=== PATIENT | female | born 1985 | race Caucasian/White ===

== ENCOUNTER 2017-07-13 20:02 | Emergency (ER) | payer BC, MEDICAID ==
[~2017-07-13] VITALS: Ht 160 cm; Wt 67.5 kg
[2017-07-13 20:04] VITALS: Ht 160 cm; Wt 67.5 kg
[2017-07-13] MEDS ORDERED: morphine 4 MG/ML VIAL IV STA (20:31)
[2017-07-13 20:43] LABS: URINE BLOOD (Dip) POC Trace-lysed (NEGATIVE)
[2017-07-13] MEDS ORDERED: MULTI PO (20:53)
[2017-07-13] MEDS ORDERED: SERT50TA6 PO (20:53)
[2017-07-13 21:06] VITALS: TEMP 98.1
[2017-07-13 21:18] LABS: BASOPHILS % 0.2 % (0.0-2.0); EOSINOPHILS # 0.2 10^3/ul (0.0-0.5); EOSINOPHILS % 1.8 % (0.0-7.0); HEMATOCRIT 38.1 % (37.0-47.0); LYMPHOCYTES # 3.6 10^3/ul (0.8-2.9); LYMPHOCYTES % 38.3 % (15.0-51.0); MEAN CORPUSCULAR HEMOGLOBIN 30.4 pg (29.0-33.0); MEAN CORPUSCULAR HGB CONC 34.1 g/dl (32.0-37.0); MEAN PLATELET VOLUME 9.7 fl (7.4-10.4); MONOCYTE # 0.7 10^3/ul (0.3-0.9); MONOCYTES % 7.2 % (0.0-11.0); NEUTROPHIL # 4.9 10^3/ul (1.6-7.5); NEUTROPHILS % 52.4 % (39.0-77.0); PLATELET COUNT 295 10^3/UL (140-415); RED BLOOD COUNT 4.28 10^6/ul (4.20-5.40); RED CELL DISTRIBUTION WIDTH 12.2 % (11.5-14.5); WHITE BLOOD COUNT 9.3 10^3/ul (4.8-10.8)
[2017-07-13 21:43] LABS: ANION GAP 13 (8-16); BLOOD UREA NITROGEN 15 mg/dl (7-20); CALCIUM 9.3 mg/dl (8.4-10.2); CARBON DIOXIDE 27 mmol/L (21-31); CHLORIDE 104 mmol/L (97-110); CREATININE 0.81 mg/dl (0.44-1.00); GLUCOSE 95 mg/dl (70-220); POTASSIUM 3.7 mmol/L (3.5-5.1); SODIUM 140 mmol/L (135-144)
[2017-07-13 21:44] LABS: D-DIMER < 220.00 ng/ml (<460)
--- NOTE | 2017-07-13 21:44 | RADRPT ---
PROCEDURE: XR Chest. CLINICAL INDICATION: Chest pain. TECHNIQUE: Single frontal chest x-ray. COMPARISON: None available. FINDINGS: The cardiomediastinal silhouette is unremarkable. No pneumothorax, pleural effusion or consolidation is seen. No acute osseous abnormality is noted. IMPRESSION: 1. No acute cardiopulmonary abnormality. RPTAT: HFN .Maria C Felipe MD, Date Time Electronically viewed and signed by .Maria C Felipe MD, MD on 07/13/2017 21:43 .N/
[2017-07-13 21:57] LABS: TROPONIN-I < 0.012 ng/ml (0.00-0.12)
[2017-07-13] MEDS ORDERED: HYDROCODONE/APAP (5/325) TAB PO ONE (22:00)
--- NOTE | 2017-07-13 22:26 | ERD ---
ER Documentation Chief Complaint Date/Time DATE: 07/13/17 TIME: 22:25 Chief Complaint intermittent chest pain x 3 days HPI 32-year-old female presenting with left-sided chest pain intermittently for the last 3 days. She describes it as a pressure-like pain, and non-provoked, not worse with exertion. No associated shortness of breath, nausea, vomiting, fever , or chills. No alleviating or exacerbating factors. She denies any URI symptoms or cough. ROS All systems reviewed and are negative except as per history of present illness. Medications Home Meds Reported Medications Multivitamins* (Theragran*) 1 Tab Tab, 1 TAB PO DAILY, TAB 07/13/17 Sertraline Hcl* (Sertraline Hcl*) 50 Mg Tablet, 50 MG PO DAILY, #30 TAB 07/13/17 Allergies Allergies: Coded Allergies: No Known Allergies (Verified Allergy, Unknown, 07/13/17) PMhx/Soc Medical and Surgical Hx: pt denies Surgical Hx Hx Miscellaneous Medical Probl: Yes (Depression) Hx Alcohol Use: No Hx Substance Use: No Hx Tobacco Use: No Smoking Status: Never smoker FmHx Family History: No diabetes Physical Exam Vitals Vital Signs Date Time Temp Pulse Resp B/P Pulse Ox O2 Delivery O2 Flow Rate FiO2 07/13/17 22:45 74 20 115/68 98 Room Air 07/13/17 21:06 98.1 68 18 110/62 98 Room Air 07/13/17 20:04 98.5 91 20 132/75 100 Physical Exam Const: Well-appearing, no apparent distress Head: Atraumatic Eyes: Normal Conjunctiva, PERRLA ENT: Normal External Ears, Nose and Mouth. Neck: Full range of motion..~ No meningismus. Resp: Clear to auscultation bilaterally Cardio: No chest wall tenderness to palpation. Regular rate and rhythm, no murmurs. 2+ pulses in all 4 extremities Abd: Soft, non tender, non distended. Normal bowel sounds Skin: No petechiae or rashes Back: No midline or flank tenderness Ext: No cyanosis, or edema Neur: Awake and alert Psych: Anxious mood and Affect, somewhat tearful Result Diagram: 07/13/17 2100 07/13/17 2100 Results 24 hrs Laboratory Tests Test 07/13/17 20:50 07/13/17 21:00 Bedside Urine pH (LAB) 5.5 Bedside Urine Protein (LAB) Trace Bedside Urine Glucose (UA) Negative Bedside Urine Ketones (LAB) Negative Bedside Urine Blood Trace-lysed Bedside Urine Nitrite (LAB) Negative Bedside Urine Leukocyte Esterase (L 1+ White Blood Count 9.310^3/ul Red Blood Count 4.2810^6/ul Hemoglobin 13.0g/dl Hematocrit 38.1% Mean Corpuscular Volume 89.0fl Mean Corpuscular Hemoglobin 30.4pg Mean Corpuscular Hemoglobin Concent 34.1g/dl Red Cell Distribution Width 12.2% Platelet Count 88160^3/UL Mean Platelet Volume 9.7fl Neutrophils % 52.4% Lymphocytes % 38.3% Monocytes % 7.2% Eosinophils % 1.8% Basophils % 0.2% Nucleated Red Blood Cells % 0.0/100WBC Neutrophils # 4.910^3/ul Lymphocytes # 3.610^3/ul Monocytes # 0.710^3/ul Eosinophils # 0.210^3/ul Basophils # 0.010^3/ul Nucleated Red Blood Cells # 0.010^3/ul D-Dimer < 220.00ng/ml D-Dimer Comment Sodium Level 140mmol/L Potassium Level 3.7mmol/L Chloride Level 104mmol/L Carbon Dioxide Level 27mmol/L Anion Gap 13 Blood Urea Nitrogen 15mg/dl Creatinine 0.81mg/dl Glucose Level 95mg/dl Calcium Level 9.3mg/dl Troponin I < 0.012ng/ml Current Medications Medications (Trade) Dose Ordered Sig/Francy Route PRN Reason Start Time Stop Time Status Last Admin Dose Admin Morphine Sulfate (morphine) 4 mg ONCE STAT IV 07/13/17 20:31 07/13/17 20:32 DC 07/13/17 21:00 Acetaminophen/ Hydrocodone Bitart ([place] (5/325)) 1 tab ONCE ONCE PO 07/13/17 22:00 07/13/17 22:01 DC 07/13/17 21:44 Procedures/MDM Labs CBC, BMP, troponin, d-dimer within normal limits Imaging Chest x-ray shows no acute abnormalities EKG: Rate/Rhythm: Normal Sinus Rhythm QRS, ST, T-waves: No changes consistent w/ acute ischemia Impression: No evidence of ischemia or arrhythmia MDM She is presenting with left-sided unprovoked chest pain. Vitals are stable and she is afebrile. She is low risk for PE based on her well score. I have a very low suspicion for pulmonary embolism, aortic dissection, pneumothorax, pneumonia, or ACS. I treated her pain with analgesics. Patient's thoracic symptoms have stabilized while in the department and are stable for outpatient follow up. Her workup today does not reveal any emergent or life-threatening etiology for her chest pain. Follow-up with PCP was recommended in 1-2 days. Return precautions were given. Exam and work up not consistent w/ ischemia, arrhythmia, PE or dissection. Departure Diagnosis: Primary Impression: Chest pain Chest pain type: unspecified Qualified Code: R07.9 - Chest pain, unspecified type Condition: Stable EKERICA ZAMORA MD Jul 13, 2017 22:26
[2017-07-13 22:45] VITALS: BP 115/68; PULSE 74; RESP 20
== END 2017-07-13 22:51 | disposition home or self-care (01) ==
LOC: E/R 20:02
DX: R07.9 Chest pain, unspecified (principal)
CPT/HCPCS: 71010; 80048; 81003; 84484; 85025; 85378; 93005; J2270; Z7610; 36415; 96374